=== PATIENT | male | born 1970 | race Asian ===

== ENCOUNTER 2024-05-27 01:43 | Emergency (ER) | payer OTHER, SELFPAY ==
[2024-05-27 01:45] VITALS: BP 162/108
[2024-05-27 04:28] VITALS: BP 131/75
--- NOTE | 2024-05-27 04:48 | ED.GENMED ---
History of Present Illness
<CADE Xie - Last Filed: 05/27/24 05:51>
General
Chief Complaint: Facial Problem
Source: patient
Time Seen by Provider: 05/27/24 04:32
History of Present Illness
History of Present Illness:
Patient is a 54 y/o male with PMHx of HLD and sleep apnea presenting for facial pain x1 week. He states 1 week ago he began to have tingling in his lips and right cheek to his ear. He states it was worse when pressing on the external skin. He states
that yesterday the tingling went away and he began to get pain in his jaw. He states that a cold compress alleviates the pain and then it comes back 30 minutes after he removes the ice. He states tylenol provides him no relief. He states he saw an
emergency dentist yesterday and had an xray done. He states the xray was negative and they saw no abnormalities in his teeth. He states he had noticed a click in his right jaw over the past 2 days. He denies any trauma to the area. He states he does
not remember an inciting event to his symptoms. He denies any tooth pain, cough, sore throat, ear pain, fevers, SOB, chets pain, rashes.
Past History
<CADE Xie - Last Filed: 05/27/24 05:51>
Past History
ED Past Medical History: Other (Sleep apnea)
Social History
Tobacco: Non-smoker
Alcohol: None
Family History
Family History: Negative Diabetes, Hypertension or CAD
Phy Exam
<CADE Xie - Last Filed: 05/27/24 05:51>
Physical Exam
Physical Exam:
GENERAL: Alert , in no apparent distress
EYE: pupils equal and reactive
Mouth: No pain with palpation of the teeth. Teeth in good repair with no cracks.
Face: No pain with light or deep palpation of the cheek or jaw. No swelling noted.
Ears: TMs pearly orozco with no effusion or erythema.
Throat: Airway intact, no exudates
NECK: Supple, no significant adenopathy.
CARDIAC: Regular rate and rhythm .
LUNGS: Clear breath sounds bilaterally, no acute respiratory distress, no wheezes/rales/rhonchi
ABDOMEN: Soft, nondistended, nontender, no cvat
NEUROLOGICAL: Alert and oriented, no focal neuro deficits
SKIN: Warm and dry, skin intact. No rashes noted.
MUSCULOSKELETAL: No edema, well perfused.
PSYCH: Normal and appropriate interaction.
Course
<CADE Xie - Last Filed: 05/27/24 05:51>
Orders/Labs/Results
Orders:
Orders
05/27/24 05:36
Carbamazepine [Tegretol] 200 mg PO NOW STA
Vital Signs
Initial and Last Documented VS:
Initial Vital Signs
Pulse Resp BP Pulse Ox
86 22 162/108 100
05/27/24 01:45 05/27/24 01:45 05/27/24 01:45 05/27/24 01:45
Last Documented Vital Signs
Pulse Resp BP Pulse Ox
78 16 131/75 100
05/27/24 04:28 05/27/24 04:28 05/27/24 04:28 05/27/24 04:28
<Sabina Levy DO - Last Filed: 05/27/24 05:51>
Orders/Labs/Results
Orders:
Orders
05/27/24 05:36
Carbamazepine [Tegretol] 200 mg PO NOW STA
Vital Signs
Initial and Last Documented VS:
Initial Vital Signs
Pulse Resp BP Pulse Ox
86 22 162/108 100
05/27/24 01:45 05/27/24 01:45 05/27/24 01:45 05/27/24 01:45
Last Documented Vital Signs
Pulse Resp BP Pulse Ox
78 16 131/75 100
05/27/24 04:28 05/27/24 04:28 05/27/24 04:28 05/27/24 04:28
<Chace Best [facility] - Last Filed: 05/27/24 05:51>
MDM/Problems Addressed
Differential Diagnosis Includes:
Differential diagnosis includes but is not limited to TMJ, trigeminal neuralgia, varicella zoster
<Chace Best [facility] - Last Filed: 05/27/24 05:51>
*Pulse Oximetry
Patient hypoxic: no
*EKG
Interpreted by ED Provider?: NA
*Rinkman Interpretation
Rate: Rinkman- N/A
*Critical Care Note
Total Time (30-74mins, 75-104mins- exclusive of procedures): Not Applicable
ED Attending Note
<Chace Best [facility] - Last Filed: 05/27/24 05:51>
-
Portions of this chart may have been created with voice recognition software.� Occasional wrong word or��sound alike� substitutions may have occurred due to the inherent limitations of voice recognition software.
<Sabina Levy DO - Last Filed: 05/27/24 05:51>
ED Attending Note
Patient seen and examined by attending physician: Yes
I performed the substantive portion of visit, reviewed & personally made and approve the management plan that is documented in note by myself or ANDREW.: Yes
ED Attending Note:
This is a 54-year-old gentleman with history of obesity, has been maintained on Mounjaro 5 mg weekly for at least a year.
He complains of 1 week history of initially mild right facial tingling of his right face, right lip and cheek without other associated symptoms. Tingling resolved within a day or 2 but then yesterday developed sharp, intermittent pain right facial
without associated symptoms. He has had no dental pain, no pain with chewing, no sore throat, no trouble swallowing, no headache, no neck pain, no fever no chills.
He was evaluated by dentist yesterday with unremarkable evaluation including unremarkable x-rays and unremarkable dental exam. Recommended to take ibuprofen for his discomfort which she has been doing so, 600 mg at 6 PM last night and then at
midnight without relief.
He is afforded some relief with sitting upright and placing ice to the right side of his face. He has had no swelling and has not noticed a rash.
No history of similar episodes in the past.
No associated weakness nor numbness, no vision difficulty, no speech difficulty.
GENERAL: 54-year-old gentleman appears his stated age, awake and alert, pleasant, appears in no acute distress. is accompanying.
EYE: pupils equal and reactive. anicteric
NECK: Supple, nontender, no meningismus, no significant adenopathy.
ENT: posterior pharynx is clear, oral mucosa is moist. TM clear b/l, nares patent. No palpable facial tenderness no dental tenderness. No TMJ tenderness. Full mandible range of motion without difficulty nor pain. Tongue is midline. There is no
facial rash nor erythema nor swelling.
CARDIAC: Regular rate and rhythm. no murmur.
LUNGS: Clear breath sounds bilaterally, no acute respiratory distress, no wheezes/rales/rhonchi
NEUROLOGICAL: Alert and oriented x3, no focal neuro deficits. Cranial nerves II through XII grossly intact. Gait is colvin and steady.
SKIN: Warm and dry, normal color, skin intact. No rash.
MUSCULOSKELETAL: No C/C/E. peripheral pulses are full and equal b/l. No palpable tenderness.
PSYCH: Normal and appropriate interaction.
History and exam concerning for right facial trigeminal neuralgia, other consideration is prodromal neuralgia of herpes zoster. Dental infection is a consideration but patient has undergone unremarkable dental exam just yesterday.
As he has no apparent rash would not initiate Valtrex prophylactically but recommend he monitor for onset of vesicular grouped rash and if this occurs prompt notification of his PCP or prompt return to the ED.
I suspect neuralgia may be onset of trigeminal neuralgia and recommend we initiate Tegretol, 200 mg twice daily with prompt follow-up with PCP for recheck and recommend evaluation with neurology as well.
Overall well in appearance and currently pain-free but admits that pain comes and goes, improves with local ice.
At this point no indication for imaging nor laboratory studies.
Return precautions discussed.
Discharge Plan
Departure
Patient Disposition: Home (Routine Discharge)
Date of Disposition: 05/27/24
Time of Disposition: 05:40
Patient with high blood pressure during this ER visit?: Yes
Discharge Problem:
Right trigeminal neuralgia
Instructions: Trigeminal neuralgia, BLOOD PRESSURE
Prescriptions:
New
carbamazepine [Tegretol] 200 mg tablet
200 mg PO BID Qty: 30 0RF
No Action
meclizine 25 MG tablet
25 mg PO Q8HPRN PRN (Reason: nausea or vertigo) Qty: 30 0RF
Referrals:
Zackery Tomas MD [Active] - Call in 1-3 days for appt
Ubaldo Skaggs MD [Family Provider] - Call in 1-3 days for appt
Interventions
Interventions:
*Risk Screen - Suicide Last Done: 05/27/24 01:45
*Neglect/Abuse Screening Last Done: 05/27/24 01:45
ED- Fall Risk Assessment Last Done: 05/27/24 04:08
ED- Neurological Assessment Last Done: 05/27/24 04:08
ED-Skin Assessment Last Done: 05/27/24 04:08
Discharge Date and Time
Print Language: CZECH
[2024-05-27 05:12] VITALS: BP 135/70
[2024-05-27] MEDS: TEGRETOL 200 MG PO (06:10)
== END 2024-05-27 06:14 | disposition home or self-care (01) ==
LOC: EMR 01:43
PROVIDERS: EMERGENCY PHYSICIAN Emergency Medicine; FAMILY PHYSICIAN Internal Medicine
DX: G50.0 Trigeminal neuralgia (principal); R03.0 Elevated blood-pressure reading, without diagnosis of hypertension; G47.30 Sleep apnea, unspecified; E78.5 Hyperlipidemia, unspecified
CPT/HCPCS: 99283